=== PATIENT | male | born 1940 | race Caucasian/White ===

== ENCOUNTER 2022-03-13 22:31 | Emergency (ER) | payer MEDICARE, OTHER ==
[~2022-03-13] VITALS: Ht 185.4 cm; Wt 99.8 kg
[2022-03-13] MEDS ORDERED: SILVER NITRATE SWABS ONE ×2 (22:55→23:02)
[2022-03-13] MEDS ORDERED: TETANUS/DIPHTHERIA TOX ADULT 0.5 ML SYR IM ONE (23:00)
[2022-03-13] MEDS ORDERED: TETANUS/DIPHTHERIA TOX ADULT 0.5 ML SYR ONE (23:13)
== END 2022-03-13 23:38 | disposition home or self-care (01) ==
LOC: FSED 22:39
DX: S91.115A Laceration without foreign body of left lesser toe(s) without damage to nail, initial encounter (principal); W45.8XXA Other foreign body or object entering through skin, initial encounter; Y92.89 Other specified places as the place of occurrence of the external cause; I48.91 Unspecified atrial fibrillation
CPT/HCPCS: 90714; 99283